=== PATIENT | female | born 1930 | race Caucasian/White ===

== ENCOUNTER → 2017-07-09 | Outpatient (CLI) | payer MEDICARE, OTHER ==
[~2017-07-09] MED LIST: ASPIRIN81 M2; CRANBERRY500 M1; FOLGARD TABLET1 EAC1; GLUCOPHAGE500 MG; HYDROCODONE-AP1 EAC6 PO; KLOR-CON 1010 MEQ PO; LASIX 20 MG TAB20 MG PO; LOSARTAN-HCTZ1 EAC1; MELATONIN3 MG PO; ONE-A-DAY WOMENS PO; OXYBUTYNIN 5 MG5 M1; PRAVACHOL20 MG PO; PRESERVISION A1 EACH PO; PRILOSEC 20 MG20 MG; TRANDATE 200 M200 M1; VITAMIN D2000 UNIT PO; VITAMIN D31000 UNI2 PO
--- NOTE | 2017-07-09 13:05 | 2DMMODE ---
[place] [address] 2 D/M-MODE ECHOCARDIOGRAM Name: MILLY PATINO Room: [facility]#: [id number] Admission: 07/09/17 Attend Phys: Latha Yates, Discharge: Date of : [birth year] Date of Service: 07/09/17 1305 Report #: [id number] THIS REPORT FOR: //name// APPROVED REPORT Study performed: 07/09/2017 10:15:30 EXAM: Comprehensive 2D, Doppler, and color-flow Echocardiogram Patient Location: Out-Patient Status: routine BSA: 2.14 HR: 70 bpm BP: 148/90 mmHg Other Information Study Quality: Adequate Indications Aortic Valve Disease 2D Dimensions LVEF(%): 55.75 (>50%) IVSd: 13.68 (7-11mm) LVOT Diam: 20.15 (18-24mm) LVDd: 40.53 mm PWd: 9.63 (7-11mm) Ascending Ao: 30.14 (22-36mm) LVDs: 28.91 (25-40mm) Aortic Root: 25.84 mm Tao's LVEF: 55.75 % Volumes Left Atrial Volume (Systole) LA ESV Index: 26.60 mL/m2 Aortic Valve AoV Peak Robert.: 4.34 m/s AO Peak Gr.: 75.30 mmHg LVOT Max P.85 mmHg AO Mean Gr.: 46.26 mmHg LVOT Mean P.12 mmHg LVOT Max V: 0.98 m/s AO V2 VTI: 106.56 cm LVOT Mean V: 0.68 m/s ANITRA (VTI): 0.77 cm2 LVOT V1 VTI: 25.89 cm Mitral Valve MV Peak Gr.: 9.19 mmHg MV Mean Gr.: 3.62 mmHg E/A Ratio: 0.94 [place] [address] 2 D/M-MODE ECHOCARDIOGRAM Name: MILLY PATINO Room: [facility]#: [id number] Admission: 07/09/17 Attend Phys: Latha Yates, Discharge: Date of : [birth year] Date of Service: 07/09/17 1305 Report #: [id number] MV Decel. Time: 381.24 ms MV E Max Robert.: 1.34 m/s MV PHT: 110.56 ms MVA (PHT): 1.99 cm2 TDI E/Lateral E': 19.14 E/Medial E': 26.80 Medial E' Robert.: 0.05 m/s Lateral E' Robert.: 0.07 m/s Pulmonary Valve PV Peak Robert.: 1.51 m/s PV Peak Gr.: 9.11 mmHg Left Ventricle The left ventricle is normal size. There is normal LV segmental wall motion. There is normal left ventricular wall thickness. Left ventricular systolic function is normal. The left ventricular ejection fraction is within the normal range. LVEF is 60%. Grade I - abnormal relaxation pattern. Right Ventricle The right ventricle is normal size. The right ventricular systolic function is normal. Atria The left atrium size is normal. The right atrium size is normal. Aortic Valve Aortic valve is calcified. Mild aortic regurgitation. Moderate to severe aortic stenosis. Mitral Valve There is mitral annular calcification. Mitral valve leaflets are moderately thickened. Mild mitral regurgitation. No significant mitral valve stenosis. Tricuspid Valve The tricuspid valve is normal in structure. Mild tricuspid regurgitation. Pulmonic Valve The pulmonary valve is normal in structure. There is no pulmonic valvular regurgitation[place] [address] 2 D/M-MODE ECHOCARDIOGRAM Name: MILLY PATINO Room: [facility]#: [id number] Admission: 07/09/17 Attend Phys: Latha Yates, Discharge: Date of : [birth year] Date of Service: 07/09/17 1305 Report #: [id number] The aortic root is normal in size. IVC is normal in size and collapses with >50% inspiration Pericardium There is no pericardial effusion. <Conclusion> The left ventricle is normal size. There is normal left ventricular wall thickness. Left ventricular systolic function is normal. The left ventricular ejection fraction is within the normal range. LVEF is 60%. Grade I - abnormal relaxation pattern. The right ventricle is normal size. The left atrium size is normal. Aortic valve is calcified. Mild aortic regurgitation. Moderate to severe aortic stenosis. There is mitral annular calcification. Mitral valve leaflets are moderately thickened. Mild mitral regurgitation. No significant mitral valve stenosis. The tricuspid valve is normal in structure. Mild tricuspid regurgitation. IVC is normal in size and collapses with >50% inspiration There is no pericardial effusion. There is normal LV segmental wall motion. <ELECTRONICALLY SIGNED> By: Jayro Acuna MD, FACC 07/09/17 1305 1305 1305 Jayro Acuna MD, FACC /INF
== END ==
LOC: M.CRD 10:00
DX: I08.3 Combined rheumatic disorders of mitral, aortic and tricuspid valves (principal)

== ENCOUNTER → 2017-07-09 | Outpatient (CLI) | payer MEDICARE, OTHER | LOC: M.LAB 12:23 | DX: I25.10 Atherosclerotic heart disease of native coronary artery without angina pectoris (principal) ==